=== PATIENT | female | born 1980 | race Caucasian/White ===

== ENCOUNTER 2016-09-26 15:19 | Observation (INO) ==
[2016-09-26] MEDS ORDERED: Metoclopramide 10 MG/2 ML VIAL IVP ONE (15:40)
[2016-09-26] MEDS ORDERED: 0.9 % Sodium Chloride 1,000 ML IVC SCH (15:45)
[2016-09-26 16:10] LABS: Basophils % 0.2 %; Eosinophils # 0.1 K/mcL (0.0-0.6); Eosinophils % 0.6 %; Hematocrit 21.1 % (35.3-44.9); Immature Granulocytes % 0.6 % (0-4); Lymphocytes # 1.5 K/mcL (0.6-4.6); Mean Corpuscular HGB Conc 31.8 g/dL (31.6-35.5); Mean Corpuscular Hemoglobin 25.8 pg (28.0-33.3); Mean Corpuscular Volume 81.2 fL (83.0-100.0); Mean Platelet Volume 10.7 fL (9.4-12.4); Monocytes # 0.8 K/mcL (0.0-1.3); Neutrophils # 10.1 K/mcL (1.6-8.9); Platelet Count 287 K/mcL (140-400); Red Cell Distribution Width 15.1 % (11.5-14.5); Segmented Neutrophils % 80.6 %
[2016-09-26 16:12] LABS: Alanine Aminotransferase 12 Units/L (0-55); Albumin 3.4 g/dL (3.5-5.0); Albumin/Globulin Ratio 1.1 (1.1-2.2); Alkaline Phosphatase 58 Units/L (38-126); Aspartate Amino Transferase 10 Units/L (5-34); BUN/Creatinine Ratio 14 (6-26); Bilirubin,Total 0.1 mg/dL (0.2-1.2); Blood Urea Nitrogen 10 mg/dL (7-20); Calcium 8.3 mg/dL (8.6-10.8); Carbon Dioxide 26 mEq/L (19-29); Chloride 106 mEq/L (98-109); Globulin 3.2 g/dL (2.4-3.5); Glucose 121 mg/dL (70-99); Osmolality,Calculated 286 (280-300); Potassium 3.8 mEq/L (3.5-4.5); Sodium 138 mEq/L (136-145); Total Protein 6.6 g/dL (6.0-8.3); eGFR For African Americans > 60 (> 60); eGFR For Non-African Americans > 60 (> 60)
[2016-09-26 16:21] LABS: Hemoglobin 6.7 g/dL (11.5-15.4)
[2016-09-26 17:15] LABS: Bilirubin,Urine Negative (Negative); Blood,Urine Large (Negative); Clarity,Urine Clear (Clear); Color,Urine Yellow (Yellow); Glucose,Urine (UA) Normal (Normal); Ketones,Urine Negative (Negative); Leukocyte Esterase,Urine Small (Negative); Nitrite,Urine Negative (Negative); PH,Urine 7.5 pH Units (5.0-8.0); Protein,Urine Negative (Neg-Trace); Specific Gravity,Urine 1.009 (1.010-1.025); Urobilinogen,Urine Normal (Normal)
[2016-09-26 17:16] LABS: Bacteria,Urine None Seen per hpf (None-Few); Hyaline Casts,Urine None Seen per lpf (None-Few); RBC,Urine TNTC per hpf (0-3); Squamous Epithelial Cell,Urine Many per lpf (None-Few)
[2016-09-26] MEDS ORDERED: 0.9 % Sodium Chloride 250 ML ONE ×2 (17:21→22:18)
--- NOTE | 2016-09-26 18:53 | Emergency Department Note ---
Disposition Clinical Impression: Symptomatic anemia Disposition: Home, Self-Care Condition: Good Referrals: Pankaj Pang MD [Primary Care Provider] - Forms: ED Satisfaction Letter Female Urogenital HPI - General Chief complaint: ED Nausea/Vomiting/Diarrhea Stated complaint: Vaginal Bleeding/Nausea Time Seen by Provider: 09/26/16 15:34 Source: patient Limitations: no limitations Nursing Notes Reviewed: Yes Vital Signs Reviewed: Yes - History of Present Illness HPI Narrative: 36-year-old female patient who has a history of abnormal uterine bleeding presents with concern for anemia. She actually was told by Dr. Young in [facility]/ [facility] to go tomorrow, emergency department yesterday. She went was on a stable hemoglobin yesterday. She is discharged in the emergency department on Sprintec 's as well as iron supplementation. Today she became more dyspneic and more symptomatic in terms or anemia. She has dyspnea on exertion as well as chest pain with ambulation. She was concerned about being more pale as well as wanting a solution to her bleeding with symptoms. She came here today feeling very poorly. She has no worsening of her vaginal bleeding today. She had an ultrasound done yesterday that per her history was fairly normal. - Related Data Home Medications Medication Instructions Recorded Confirmed Ibuprofen 05/13/16 Previous Rx's Medication Instructions Recorded Cyclobenzaprine HCl 5 mg PO DAILY #3 tablet 05/13/16 Diclofenac Potassium 50 mg PO TID PRN #20 tablet 05/13/16 Allergies Allergy/AdvReac Type Severity Reaction Status Date / Time No Known Allergies Allergy Verified 09/26/16 15:32 All systems ED: reviewed and negative except as stated. 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: dysfunctional uterine bleed - Social History Smoking Status: Never smoker Smokeless Tobacco Status: No Alcohol use: Reports: none Drug use: Reports: none Physical Exam - General Limitations: no limitations General appearance: alert, in no apparent distress - Head Head exam: atraumatic - Eye Eye exam: Present: normal appearance - ENT ENT exam: normal exam - Neck Neck exam: Present: normal inspection - Chest Chest inspection: Present: normal inspection - Respiratory Respiratory exam: Present: normal lung sounds bilaterally - Cardiovascular Cardiovascular exam: Present: regular rate, normal rhythm - Abdominal Exam Abdominal exam: Present: soft, Non-Tender - Female External Exam: Present: pt deferred Speculum Exam: Present: Pt Deferred Bimanual Exam: Present: Pt Deferred - Expanded Lower Extremity Exam Hip/Pelvis exam: Present: normal inspection Upper leg exam: Present: normal inspection Knee exam: Present: normal inspection Lower leg exam: Present: normal inspection Foot/toe exam: Present: normal inspection Neurovascular/Tendon exam: Present: normal capillary refill Gait: observed and normal - Back Exam Back exam: Present: normal inspection - Psychiatric Psychiatric exam: Present: normal affect - Skin Skin exam: Present: pallor Course Vital Signs Temperature 98.5 F 09/26/16 15:27 Pulse Rate 80 09/26/16 15:27 Respiratory Rate 16 09/26/16 15:27 Blood Pressure 121/81 09/26/16 15:27 O2 Sat by Pulse Oximetry 99 09/26/16 15:27 Temperature 98.1 F 09/26/16 18:00 Pulse Rate 80 09/26/16 18:00 Respiratory Rate 16 09/26/16 18:00 Blood Pressure 130/58 09/26/16 18:00 O2 Sat by Pulse Oximetry 100 09/26/16 17:53 Oxygen Delivery Oxygen Delivery Room Air Urogenital-Female - MDM Narrative Medical decision making narrative: I spoke with Dr. Young after a prolonged conversation with the [facility] at [facility]. She feels that if she goes to [facility] they will likely send her home from the emergency department. She does not think she needs to be admitted but wants me to give her 2 units of blood and change her Sprintec top twice daily. It seems that the pills are causing her a significant amount of nausea and im actually concerned that if she goes home she will not been able to tolerate by mouth. Additionally I will not be able to transfuse her more than one unit here in the er. One unit would bring her hemoglobin up 1 g which would make her above 7. I would proceed with admission given that she is having dyspnea on exertion and is clearly having symptomatic anemia. I will proceed with admission to the hospitalist team. The hospitalist physicians can trend her hemoglobin overnight, monitor for ongoing bleeding and if her hemoglobin stabilizes she can be discharged to Dr. Young's office on Wednesday as previously outlined for outpatient management. - Medical Records Medical records reviewed: Yes I reviewed the patient's medical records. - Lab Data Lab results reviewed: Yes I reviewed the patient's lab results. Result diagrams: 09/26/16 15:48 09/26/16 15:48 Lab Results 09/26/16 09/26/16 09/26/16 Range/Units 15:48 15:48 15:48 WBC 12.5 H (4.3-11.1) K/mcL RBC 2.60 L (3.82-4.97) M/mcL Hgb 6.7 L (11.5-15.4) g/dL Hct 21.1 L (35.3-44.9) % MCV 81.2 L (83.0-100.0) fL MCH 25.8 L (28.0-33.3) pg MCHC 31.8 (31.6-35.5) g/dL RDW 15.1 H (11.5-14.5) % Plt Count 287 (140-400) K/mcL MPV 10.7 (9.4-12.4) fL Immature Gran % 0.6 (0-4) % Seg Neutrophils % 80.6 % Lymphocytes % 12.0 % Monocytes % 6.0 % Eosinophils % 0.6 % Basophils % 0.2 % Neutrophils # 10.1 H (1.6-8.9) K/mcL Lymphocytes # 1.5 (0.6-4.6) K/mcL Monocytes # 0.8 (0.0-1.3) K/mcL Eosinophils # 0.1 (0.0-0.6) K/mcL Basophils # 0.0 (0.0-0.2) K/mcL Sodium 138 (136-145) mEq/L Potassium 3.8 (3.5-4.5) mEq/L Chloride 106 (98-109) mEq/L Carbon Dioxide 26 (19-29) mEq/L BUN 10 (7-20) mg/dL Creatinine 0.69 (0.57-1.11) mg/dL Est GFR ( Amer) > 60 (> 60) Est GFR (Non-Af Amer) > 60 (> 60) BUN/Creatinine Ratio 14 (6-26) Glucose 121 H (70-99) mg/dL Calculated Osmolality 286 (280-300) Calcium 8.3 L (8.6-10.8) mg/dL Total Bilirubin 0.1 L (0.2-1.2) mg/dL AST 10 (5-34) Units/L ALT 12 (0-55) Units/L Alkaline Phosphatase 58 (38-126) Units/L Serum Total Protein 6.6 (6.0-8.3) g/dL Albumin 3.4 L (3.5-5.0) g/dL Globulin 3.2 (2.4-3.5) g/dL Albumin/Globulin Ratio 1.1 (1.1-2.2) Serum , Qual Negative (Negative) Urine Color (Yellow) Urine Clarity (Clear) Urine pH (5.0-8.0) pH Units Ur Specific [place] (1.010-1.025) Urine Protein (Neg-Trace) mg/dL Urine Glucose (UA) (Normal) mg/dL Urine Ketones (Negative) mg/dL Urine Blood (Negative) Urine Nitrite (Negative) Urine Bilirubin (Negative) Urine Urobilinogen (Normal) mg/dL Ur Leukocyte Esterase (Negative) Urine Microscopic RBC (0-3) per hpf Urine Microscopic WBC (0-3) per hpf Ur Squamous Epith Cells (None-Few) per lpf Urine Bacteria (None-Few) per hpf Hyaline Casts (None-Few) per lpf Ur Culture Indicated? (NO) Blood Type Antibody Screen Crossmatch 09/26/16 09/26/16 Range/Units 15:48 17:05 WBC (4.3-11.1) K/mcL RBC (3.82-4.97) M/mcL Hgb (11.5-15.4) g/dL Hct (35.3-44.9) % MCV (83.0-100.0) fL MCH (28.0-33.3) pg MCHC (31.6-35.5) g/dL RDW (11.5-14.5) % Plt Count (140-400) K/mcL MPV (9.4-12.4) fL Immature Gran % (0-4) % Seg Neutrophils % % Lymphocytes % % Monocytes % % Eosinophils % % Basophils % % Neutrophils # (1.6-8.9) K/mcL Lymphocytes # (0.6-4.6) K/mcL Monocytes # (0.0-1.3) K/mcL Eosinophils # (0.0-0.6) K/mcL Basophils # (0.0-0.2) K/mcL Sodium (136-145) mEq/L Potassium (3.5-4.5) mEq/L Chloride (98-109) mEq/L Carbon Dioxide (19-29) mEq/L BUN (7-20) mg/dL Creatinine (0.57-1.11) mg/dL Est GFR ( Amer) (> 60) Est GFR (Non-Af Amer) (> 60) BUN/Creatinine Ratio (6-26) Glucose (70-99) mg/dL Calculated Osmolality (280-300) Calcium (8.6-10.8) mg/dL Total Bilirubin (0.2-1.2) mg/dL AST (5-34) Units/L ALT (0-55) Units/L Alkaline Phosphatase (38-126) Units/L Serum Total Protein (6.0-8.3) g/dL Albumin (3.5-5.0) g/dL Globulin (2.4-3.5) g/dL Albumin/Globulin Ratio (1.1-2.2) Serum , Qual (Negative) Urine Color Yellow (Yellow) Urine Clarity Clear (Clear) Urine pH 7.5 (5.0-8.0) pH Units Ur Specific [place] 1.009 L (1.010-1.025) Urine Protein Negative (Neg-Trace) mg/dL Urine Glucose (UA) Normal (Normal) mg/dL Urine Ketones Negative (Negative) mg/dL Urine Blood Large H (Negative) Urine Nitrite Negative (Negative) Urine Bilirubin Negative (Negative) Urine Urobilinogen Normal (Normal) mg/dL Ur Leukocyte Esterase Small H (Negative) Urine Microscopic RBC TNTC H (0-3) per hpf Urine Microscopic WBC 5-15 H (0-3) per hpf Ur Squamous Epith Cells Many H (None-Few) per lpf Urine Bacteria None Seen (None-Few) per hpf Hyaline Casts None Seen (None-Few) per lpf Ur Culture Indicated? YES A (NO) Blood Type A NEGATIVE Antibody Screen NEGATIVE Crossmatch See Detail Critical Care Time Critical Care Time: Yes Total Critical Care Time: 31 Attestation: I spent greater than 31 minutes providing acute care to this patient suffering from symptomatic anemia requiring blood transfusion. Critical care time was excluding billable procedures.
[2016-09-26] MEDS ORDERED: Ondansetron 4 MG/2 ML VIAL IVP PRN (20:14)
[2016-09-26] MEDS ORDERED: Acetaminophen 325 MG TABLET PO PRN (20:14)
[2016-09-26] MEDS ORDERED: Naloxone 0.4 MG/ML INJ IVP PRN (20:14)
--- NOTE | 2016-09-26 21:22 | Internal Med History&Physical ---
Date of Encounter: 09/26/16 Time of Encounter: 21:11 Assessment and Plan (1) Symptomatic anemia Current visit: Yes Status: Acute Patient has been experiencing heavy menstrual bleeding with associated symptoms of lightheadedness weakness shortness of breath. Hemoglobin was 6.7, type and screen and transfuse 2 units PRBCs Monitor H&H Fall precautions Continue with iron supplements (2) Abnormal vaginal bleeding Current visit: Yes Status: Acute Patient has been experiencing heavy menstrual bleeding with large clots. Was seen by [facility] ultrasound completed yesterday per patient's history was normal. Dr. Young [facility] suggests increasing Sprintec's to twice daily and continuing iron pills. Patient is to follow-up [facility] on Wednesday as an outpatient (3) DVT prophylaxis Current visit: Yes Status: Acute 1 patient is a risk for DVT secondary to control. Unable to anticoagulate due to bleeding/SCDs Internal Medicine - H&P: HPI Chief complaint: vaginal bleeding Admitted From: Emergency Dept Plans for Post Hospital Care: Home History of present illness: Ms. Owens is a 36 year old female with no past medical history. According to patient approximately 4 days ago she began to experience heavy menstrual bleeding with large clots. She denies any abdominal pain only heavy cramping. She was seen by her [facility] [facility] and she was placed on Sprintec folic acid and Zofran. An ultrasound was completed yesterday and per patient's history was fairly normal. Patient's been taking medications as prescribed however she has had nausea despite the Zofran. Today she began to experience dizziness with positional changes weakness fatigue and shortness of breath. She denies any chest pain fevers chills. She felt that she was appearing more pale and presented to the ER for evaluation. According to ER records lab work did reveal hemoglobin of 6.7 vital signs on presentation blood pressure 121/81 pulse rate was 80 temperature is 98.5 respiratory rate 16 physician did speak with Dr. Young who like the patient to receive Sprintec twice daily and resume her iron that she would see the patient as outpatient on Wednesday. Patient was typed and crossed and transfused 2 units of PRBCs in the ER. She has been admitted for further workup and evaluation. Presently patient denies any chest pain shortness of breath or abdominal pain. She states that she does feel better since receiving 1 unit of blood. She still appears to be very pale. I spoke with Dr. Rivers and confirmed conversation concerning Sprintec. Presently patient appears to be hemodynamically stable I reviewed his case with who agrees with plan. Past Med Surg Social Fam HX - Past Medical History Medical history: non-contributory - Social History Smoking Status: Never smoker Smokeless Tobacco Status: No Alcohol use: none Drug use: none - Family History Mother Hx Family Endocrine Disorder: Yes Internal Medicine - H&P: Meds Cyclobenzaprine HCl 5 mg PO DAILY #3 tablet 05/13/16 [Rx] Diclofenac Potassium 50 mg PO TID PRN #20 tablet 05/13/16 [Rx] Ibuprofen 05/13/16 [History] Allergies No Known Allergies Allergy (Verified 09/26/16 15:32) All Systems PM: A 10-system review of systems was performed and is negative for pertinent findings except as documented above in the HPI. - Constitutional Constitutional: fatigue, weakness, no chills, no fever(s), no night sweats - EENT Eyes: no change in vision, no discharge, no pain, no photophobia Nose, mouth and throat: no dysphagia, no nasal discharge, no neck pain, no sore throat - Cardiovascular Cardiovascular ROS IM: dyspnea on exertion, lightheadedness, no chest pain, no diaphoresis, no dyspnea, no palpitations, no syncope - Respiratory Respiratory: dyspnea on exertion - Gastrointestinal Gastrointestinal: no abdominal pain, no diarrhea, no hematemesis, no hematochezia, no melena, no nausea, no vomiting - Genitourinary Genitourinary: abnormal vaginal bleeding - Musculoskeletal Musculoskeletal ROS IM: no numbness, no tingling - Neurological Neurological ROS: no confusion, no convulsions, no focal weakness, no numbness, no tingling, no tremor(s) - Constitutional Vitals: Temp Pulse Resp BP Pulse Ox 99.0 F 92 15 125/78 98 09/26/16 20:56 09/26/16 20:56 09/26/16 20:56 09/26/16 20:56 09/26/16 20:56 General appearance: Present: A&O X 3 - Eye Eye exam: Present: PERRL, sclera anicteric Pupils: Present: PERRL Additional comments: Conjunctiva pale - Neck Neck exam general surgery: Present: supple, trachea midline. Absent: lymphadenopathy - Respiratory Respiratory exam: Present: CTAB. Absent: accessory muscle use, rales, rhonchi, wheezes - Cardiovascular Cardiovascular exam: Present: RRR, +S1, +S2. Absent: diastolic murmur, gallop, rubs, systolic murmur - GI/Abdominal GI/Abdominal exam: Present: normal bowel sounds, soft, no peritoneal signs. Absent: distended, tenderness - Extremities Exam Extremities exam: Present: warm, radial pulses palpable and symetrical. Absent : calf tenderness, cyanotic, pedal edema - Neurological Exam Neurological exam: Present: CN II-XII intact, oriented X3, no focal deficits. Absent: pronater drift, facial droop, speech deficit - Skin Skin exam: Present: dry, intact, pallor Internal Med - H&P Results - Labs CBC & Chem 7: 09/26/16 15:48 09/26/16 15:48 - EKG Data EKG shows normal: sinus rhythm
[2016-09-26] MEDS ORDERED: SPRINTEC PO SCH (22:15)
[2016-09-27 03:51] LABS: Basophils % 0.3 %; Eosinophils # 0.1 K/mcL (0.0-0.6); Eosinophils % 0.8 %; Hematocrit 25.6 % (35.3-44.9); Immature Granulocytes % 0.4 % (0-4); Lymphocytes # 2.8 K/mcL (0.6-4.6); Lymphocytes % 18.3 %; Mean Corpuscular HGB Conc 32.8 g/dL (31.6-35.5); Mean Corpuscular Hemoglobin 27.4 pg (28.0-33.3); Mean Corpuscular Volume 83.4 fL (83.0-100.0); Monocytes % 6.8 %; Neutrophils # 11.1 K/mcL (1.6-8.9); Platelet Count 298 K/mcL (140-400); Red Blood Count 3.07 M/mcL (3.82-4.97); Red Cell Distribution Width 15.4 % (11.5-14.5); Segmented Neutrophils % 73.4 %
[2016-09-27 03:52] LABS: Hemoglobin 8.4 g/dL (11.5-15.4)
[2016-09-27 08:20] LABS: Alanine Aminotransferase 9 Units/L (0-55); Albumin 2.9 g/dL (3.5-5.0); Albumin/Globulin Ratio 0.9 (1.1-2.2); Alkaline Phosphatase 53 Units/L (38-126); Aspartate Amino Transferase 15 Units/L (5-34); BUN/Creatinine Ratio 11 (6-26); Bilirubin,Total 0.7 mg/dL (0.2-1.2); Blood Urea Nitrogen 8 mg/dL (7-20); Calcium 8.4 mg/dL (8.6-10.8); Carbon Dioxide 25 mEq/L (19-29); Chloride 108 mEq/L (98-109); Globulin 3.1 g/dL (2.4-3.5); Glucose 126 mg/dL (70-99); Osmolality,Calculated 286 (280-300); Potassium 4.1 mEq/L (3.5-4.5); Sodium 138 mEq/L (136-145); eGFR For African Americans > 60 (> 60); eGFR For Non-African Americans > 60 (> 60)
[2016-09-27 10:50] VITALS: BP 110/66
[2016-09-27 11:12] LABS: % Iron Saturation 21 % (15-50); Iron 86 mcg/dL (50-170); Transferrin 292 mg/dL (180-382)
[2016-09-27 11:32] LABS: Ferritin 17 ng/ml (5-204)
[2016-09-27 11:46] LABS: Folate 9.2 ng/mL (7.0-31.4)
--- NOTE | 2016-09-27 13:19 | Discharge Summary ---
<Velia Larson Jadon - Last Filed: 09/27/16 13:17> Date of Encounter: 09/27/16 Time of Encounter: 10:45 - Discharge Diagnosis (1) Symptomatic anemia Priority: Primary Status: Acute (2) Abnormal vaginal bleeding Priority: Primary Status: Acute (3) DVT prophylaxis Priority: Secondary Status: Acute - Discharge Medications Home Medications: Cyclobenzaprine HCl 5 mg PO HS PRN 09/27/16 [History] Diclofenac Sodium [Voltaren] 50 mg PO Q8HR PRN 09/27/16 [History] Ferrous Sulfate 325 mg PO TIDWM tablet 09/27/16 [Rx] Ibuprofen [Motrin] 400 mg PO Q6HR PRN 09/27/16 [History] Norgestimate-Ethinyl Estradiol [Sprintec 28 Day Tablet] 1 tab PO DAILY 09/27/16 [History] Ondansetron HCl [Zofran] 4 mg PO TID PRN 09/27/16 [History] Allergies/Adverse Reactions: Allergies No Known Allergies Allergy (Verified 09/26/16 15:32) Date of admission: 09/26/16 19:04 Primary care physician: Pankaj Pang Discharging clinician: Virgilio Condon Anticipated date of discharge: 09/27/16 - Patient Status Disposition: Home, Self-Care Condition: Good Functional capacity at discharge: independent ambulation Overall status at discharge: patient is progressing back to baseline - Discharge Instructions Instructions: Iron Rich Diet (DC) Follow Up With: Pankaj Pang MD [Primary Care Provider] - - Diet and Activity Activity: increase activity as tolerated Diet: advance to your usual diet Hospital course: Ms. Owens is a 36 year old female who presented to [facility] on 09/26/16 with complaint of 4 day history of abnormal uterine bleeding. Patient states that she began menstruating on 09/22/2016. Patient began having normal menses until Wednesday night when she had increased heavy bleeding with clots requiring changing sanitary napkins every hour and a half. 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 Patient later became short of breath, developed dizziness and lightheadedness. She presented to the emergency Department at [facility] and was found to have anemia.patient was discharged on Sprintec and iron. A she continued to have symptomatic dizziness and dyspnea with exertion. Therefore she returned to [facility] emergency department. Upon arrival to [facility] patient was found to have a hemoglobin of 6.7. She was transfused 2 units of packed RBCs. Patient is asymptomatic at this time. Denies dizziness or shortness of breath. Hemoglobin is 8.4. She is stable for discharge. She will have repeat H&H on September 30, 2016. She is instructed to follow-up with her TANKAGE GRINDER Dr. Young for further evaluation of menorrhagia. She is instructed to continue iron and Sprintec. - Time Spent with Patient Total time spent providing and/or coordinating discharge services: Greater than 30 minutes (30 minutes including time with patient and coordinating care) - Constitutional Vitals: Temp Pulse Resp BP Pulse Ox 98.0 F 72 16 110/66 98 09/27/16 10:47 09/27/16 10:47 09/27/16 10:47 09/27/16 10:47 09/27/16 10:47 General appearance: Present: A&O X 3, obese, answers questions appropriately - Head Head exam: Present: atraumatic, normocephalic - Eye Eye exam: Present: PERRL, sclera anicteric. Absent: conjuntiva pink Pupils: Present: PERRL Additional comments: pale conjunctiva - ENT ENT exam: Present: mucous membranes moist Additional comments: oral mucosa without lesions or petechiae - Neck Neck exam general surgery: Present: supple, trachea midline. Absent: lymphadenopathy, thyromegaly - Respiratory Respiratory exam: Present: CTAB. Absent: accessory muscle use, rales, rhonchi, wheezes - Cardiovascular Cardiovascular exam: Present: RRR, +S1, +S2. Absent: diastolic murmur, gallop, rubs, systolic murmur - GI/Abdominal GI/Abdominal exam: Present: normal bowel sounds, soft, no peritoneal signs. Absent: distended, tenderness - Extremities Exam Extremities exam: Present: warm, radial pulses palpable and symetrical. Absent : calf tenderness, cyanotic, pedal edema - Neurological Exam Neurological exam: Present: CN II-XII intact, oriented X3, no focal deficits. Absent: facial droop, speech deficit - Skin Skin exam: Present: dry, intact Additional comments: no rash, erythema, petechiae, purpura, or ecchymosis to trunk, face or extremities <Virgilio Condon - Last Filed: 09/27/16 14:44> Date of Encounter: 09/27/16 Date of admission: 09/26/16 19:04 Primary care physician: Pankaj Pang [facility] course: Ms. Owens is a 36 year old female - Time Spent with Patient Total time spent providing and/or coordinating discharge services: - Constitutional Vitals: Temp Pulse Resp BP Pulse Ox 98.0 F 72 16 110/66 98 09/27/16 10:47 09/27/16 10:47 09/27/16 10:47 09/27/16 10:47 09/27/16 10:47 - Attending Attestation I examined this patient and my medical decision-making was reviewed with the Resident Physician, Dr. Velia Larson. I agree with the documented findings, disposition and treatment plan as described except to the extent set forth below. Patient was admitted for symptomatic anemia. She reported lightheadedness feeling faint shortness of breath and palpitations with exertion. She reports heavy menses. She will receive 2 units of blood transfusion overnight. Currently her symptoms have improved. On exam she is in no acute distress heart is regular S1-S2, no murmurs. Abdomen is soft nontender nondistended with normoactive bowel sounds. No palpable hepatosplenomegaly. Plan: We will send anemia studies which should be followed up outpatient with her PCP. I instructed the patient accordingly. Her hemoglobin responded appropriately to transfusion, she is asymptomatic and will be discharged home.
== END 2016-09-27 14:22 | disposition home or self-care (01) ==
LOC: EMEROO 15:19 → 3ANU 15:19
PROVIDERS: ADMIT Internal Medicine; ATTEND Internal Medicine